=== PATIENT | male | born 2000 | race Caucasian/White ===

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

== ENCOUNTER 2022-02-16 05:35 | Outpatient (CLI) | payer MEDICAID ==
[~2022-02-16 05:35] MED LIST changes: -FEXO-46 PO; +NF-ALLE180 PO
== END 2022-02-17 11:17 | disposition home or self-care (01) ==
LOC: PREOP 05:35
PROVIDERS: ATTEND Dentist
DX: Z01.818 Encounter for other preprocedural examination (principal)

== ENCOUNTER 2022-02-23 08:25 | Day surgery (SDC) | payer MEDICAID ==
[2022-02-23] VITALS (9 sets, daily range): BP systolic 127–146; BP diastolic 65–85
[~2022-02-23] VITALS: Ht 193 cm; Wt 154.8 kg
[2022-02-23] MEDS ORDERED: PHENYLEPHRINE 0.25% NASAL SPR (NEO-SYNEPHRINE) 15 ML NS ONE (08:45)
[2022-02-23] MEDS ORDERED: LACTATED RINGERS 1,000 ML IV PRN (08:45)
--- NOTE | 2022-02-23 10:21 | Progress Note-Pre Operative ---
Pre-Operative Progress Note H&P Reviewed The H&P was reviewed, patient examined and no changes noted. Date Seen by Provider: February 23, 2022 Time Seen by Provider: 10: Date H&P Reviewed: February 23, 2022 Time H&P Reviewed: : Pre-Operative Diagnosis: Recurrent dental caries and uncooperative behavior RACHEL CHAVEZ DMD February 23, 2022 10:21
[2022-02-23] MEDS ORDERED: ROCURONIUM 50 MG/5 ML (ZEMURON) VIAL IV ONE (10:31)
[2022-02-23] MEDS ORDERED: fentaNYL INJ 100 MCG/2 ML AMP ONE (10:31)
[2022-02-23] MEDS ORDERED: proPOfol 200 MG/20 ML (DIPRIVAN) VIAL IV ONE (10:31)
[2022-02-23] MEDS ORDERED: ONDANSETRON 4 MG/2 ML (SDV) Z0FRAN ONE (10:31)
[2022-02-23] MEDS ORDERED: NEOSTIGMINE 3 MG/3 ML VIAL ONE (12:04)
[2022-02-23] MEDS ORDERED: GLYCOPYRROLATE 0.2 MG/ML (ROBINUL) 2 ML VIAL ONE (12:04)
[2022-02-23] MEDS ORDERED: SEVOFLURANE (ULTANE) 15 ML INHAL SOLN ONE ×2 (12:42→12:43)
[2022-02-23] MEDS ORDERED: morphine INJ 10 MG/ML 1ML (SYR OR VIAL) IVP ONE (13:00)
[2022-02-23] MEDS ORDERED: MEPERIDINE (DEMEROL) INJ 50 MG/ML IVP ONE (13:00)
--- NOTE | 2022-02-23 13:47 | Anesthesia-General Post-Op ---
General Patient Condition Mental Status/LOC: Same as Preop Cardiovascular: Satisfactory Nausea/Vomiting: Absent Respiratory: Satisfactory Pain: Controlled Complications: Absent Post Op Complications Complications None Follow Up Care/Instructions Patient Instructions None needed. Anesthesia/Patient Condition Patient Condition Patient is doing well, no complaints, stable vital signs, no apparent adverse anesthesia problems. No complications reported per nursing. ESTEFANIA OCAMPO CRNA February 23, 2022 13:47
--- NOTE | 2022-02-23 21:54 | OPERATIVE REPORT ---
DATE OF SERVICE: 02/23/2022 PREOPERATIVE DIAGNOSIS: Dental caries, recurrent caries and uncooperative behavior in the dental office. POSTOPERATIVE DIAGNOSIS: Confirmed and unchanged. SURGICAL PROCEDURE PERFORMED: Dental rehabilitation. DESCRIPTION OF PROCEDURE: After suitable premedication, nasoendotracheal intubation and general anesthesia, the following procedures were carried out. Local anesthesia consisting of approximately 1.7 mL of 2% lidocaine with epinephrine 1:100,000 were infiltrated. Decay noted clinically and radiographically on teeth #6, 8, 9, 10, 11, 22, 23, 24, 25 and 27. Decay removed from permanent cuspids, lateral and central incisors. Teeth were prepped for stainless steel crowns. The stainless steel crowns were cemented with RelyX cement. Teeth 8, 9 and 10 open face window made with composite for cosmetic appearance. Prophy and fluoride varnish completed. The patient was extubated and taken to recovery in satisfactory condition. Postoperative instructions were reviewed with guardian. No complications noted. Job ID: [id number] DocumentID: [id number] Dictated Date: 02/23/2022 14:24:15 Brake Operator Sheet Metal Date: 02/23/2022 21:53:52 Dictated By: RACHEL CHAVEZ DDS
== END 2022-02-23 14:40 | disposition home or self-care (01) ==
LOC: SDC 08:25
PROVIDERS: ATTEND Dentist
DX: K02.9 Dental caries, unspecified (principal); F90.2 Attention-deficit hyperactivity disorder, combined type; F84.0 Autistic disorder; F79 Unspecified intellectual disabilities; E66.01 Morbid (severe) obesity due to excess calories; I10 Essential (primary) hypertension; J45.20 Mild intermittent asthma, uncomplicated; Z68.54 Body mass index [BMI] pediatric, 95th percentile for age to less than 120% of the 95th percentile for age; Z79.899 Other long term (current) drug therapy
CPT/HCPCS: 87081

== ENCOUNTER 2022-03-31 17:05 | Emergency (ER) | payer MEDICAID ==
[~2022-03-31] VITALS: Ht 190.5 cm; Wt 154.8 kg
--- NOTE | 2022-03-31 17:37 | ED Lower Extremity ---
General Stated Complaint: L KNEE FRACTURE Source: patient Exam Limitations: no limitations (GRICELDA STORY) History of Present Illness Date Seen by Provider: Mar 31, 2022 Time Seen by Provider: 17:34 Initial Comments Patient is a 21-year-old male presents ED with mother for left knee pain. Patient states 2 weeks ago he twisted and turned and fractured his left knee. Was seen at Dr. Dowling's office and was placed in a knee brace. He states every time he wears a knee brace he falls down and does not give him support. He is not currently wearing the brace. Attempted to call Nitesh's office today secondary to the increased swelling of the left knee. He does have some pain with flexion but able to stand and bear weight. Denies of trauma to the left knee post injury 2 weeks ago. Has been taken extra strength Tylenol according to mother. Denies redness, bruising, fever, chills, chest pain, shortness of breath. Denies of any popping or locking of the left knee (GRICELDA STORY) Allergies and Home Medications Allergies Coded Allergies: amoxicillin (Unverified Allergy, Mild, 02/13/21) ibuprofen (Unverified Allergy, Mild, 02/13/21) Penicillins (Unverified Allergy, Unknown, 02/13/21) Sulfa (Sulfonamide Antibiotics) (Unverified Allergy, Unknown, 02/13/21) lisdexamfetamine (Unverified Allergy, Unknown, 09/24/21) methylphenidate (Unverified Allergy, Unknown, 02/13/21) Patient Home Medication List Home Medication List Reviewed: Yes (GRICELDA STORY) Albuterol Sulfate (Albuterol Sulfate) 2.5 Mg/0.5 Ml Vial.neb, 2.5 MG IH TID PRN for SHORTNESS OF BREATH, (Reported) Entered as Reported by: FIONA ERWIN on 09/13/17 1531 Albuterol Sulfate (Proair Hfa) 1 Puff Puff, 2 PUFF IH QID PRN for SHORTNESS OF BREATH, (Reported) Entered as Reported by: FIONA ERWIN on 05/31/18 1538 Amlodipine Besylate (Amlodipine Besylate) 5 Mg Tablet, 5 MG PO DAILY, (Reported) Entered as Reported by: JAVIER Renetta SALVADOR on 02/13/21 1342 Aripiprazole (Abilify) 20 Mg Tablet, 20 MG PO DAILY, (Reported) Entered as Reported by: OZZIE BRADY on 09/24/21 0924 Cetirizine HCl (Cetirizine HCl) 10 Mg Tablet, 10 MG PO DAILY, (Reported) Entered as Reported by: FIONA ERWIN on 10/24/19 1049 Cholecalciferol (Vitamin D3) (Vitamin D3) Unknown Strength Capsule, 2,000 PO DAILY, (Reported) Entered as Reported by: JAVIER FRANCO on 02/13/21 1342 Clonidine HCl (Clonidine HCl) 0.1 Mg Tablet, 0.1 MG PO BID, (Reported) Entered as Reported by: CARMEN ZHANG on 07/22/15 0843 Clonidine HCl (Clonidine HCl) 0.2 Mg Tablet, 0.2 MG PO HS, (Reported) Entered as Reported by: CARMEN ZHANG on 06/10/20 1527 Fexofenadine HCl (Fexofenadine HCl) 180 Mg Tablet, 180 MG PO DAILY, (Reported) Entered as Reported by: CARMEN ZHANG on 06/10/20 1527 Hydroxyzine Pamoate (Hydroxyzine Pamoate) 25 Mg Capsule, 50 MG PO TID, (Reported) Entered as Reported by: FIONA ERWIN on 10/24/19 1049 Loxapine Succinate (Loxapine) 50 Mg Capsule, 60 MG PO HS, (Reported) Entered as Reported by: CARMEN ZHANG on 06/10/20 1527 Melatonin/Pyridoxine HCl (B6) (Melatonin 10 mg Tablet) 1 Each Tab.mphase, 10 MG PO HS, (Reported) Entered as Reported by: FIONA ERWIN on 05/31/18 1538 [place]ka-3/Dha/Epa/Fish Oil (Fish Oil 1,000 mg Softgel) 1,000 Mg Capsule, 1,000 MG PO HS, (Reported) Entered as Reported by: FIONA ERWIN on 09/13/17 1531 Oxcarbazepine (Oxcarbazepine) 300 Mg/5 Ml Oral.susp, 300 MG PO DAILY, (Reported) Entered as Reported by: OZZIE BRADY on 09/24/21927 Oxcarbazepine (Oxcarbazepine) 300 Mg/5 Ml Oral.susp, 300 MG PO HS, (Reported) Entered as Reported by: OZZIE BRADY on 09/24/21927 Pantoprazole Sodium (Pantoprazole Sodium) 20 Mg Tablet.dr, 40 MG PO DAILY, (Reported) Entered as Reported by: FIONA ERWIN on 10/24/19 1049 Review of Systems Constitutional: No chills, No diaphoresis EENTM: No blurred vision, No double vision Respiratory: No cough Cardiovascular: No chest pain Gastrointestinal: No abdominal pain, No diarrhea, No nausea, No vomiting Genitourinary: No decreased output Musculoskeletal: No back pain; joint pain, muscle pain Skin: No change in color, No change in hair/nails (GRICELDA STORY) All Other Systems Reviewed Negative Unless Noted: Yes (GRICELDA STORY) Past Vsfpapi-Ypvquz-Fzrquh Hx Immunizations Up To Date Tetanus Booster (TDap): More than 5yrs PED Vaccines UTD: Yes First/Initial COVID19 Vaccinat: NO Second COVID19 Vaccination Desmond: NO Third COVID19 Vaccination Date: NO (GRICELDA STORY) Seasonal Allergies Seasonal Allergies: Yes (GRICELDA STORY) Past Medical History Surgeries: Yes (DENTAL PROCEDURES/cyst from knee, bilat ing hernia, BMT) Abdominal Respiratory: Yes Asthma Currently Using CPAP: No Cardiac: No Neurological: Yes (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, TIC DISORDER, 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) Developmental Disorder Reproductive Disorders: No Sexually Transmitted Disease: No HIV/AIDS: No Genitourinary: No Gastrointestinal: Yes Gastroesophageal Reflux, Chronic Constipation, Irritable Bowel Musculoskeletal: No Endocrine: No HEENT: No Loss of Vision: Denies Hearing Impairment: Hard of Hearing, Hearing Aide Right Cancer: No Psychosocial: Yes (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 0.0oz. [id number]; 41.55 BMI Method:Stated General Appearance: WD/WN, no apparent distress HEENT: PERRL/EOMI, normal ENT inspection, TMs normal, pharynx normal Neck: non-tender, full range of motion, supple Cardiovascular: regular rate, rhythm, no edema, no gallop, no JVD Respiratory: chest non-tender, lungs clear, normal breath sounds, no respiratory distress Gastrointestinal: normal bowel sounds, non tender, soft, no organomegaly Back: normal inspection, no CVA tenderness Hips: bilateral hip non-tender, bilateral hip normal inspection, bilateral hip normal range of motion, bilateral hip no evidence of injury Knees: left knee normal range of motion (Full extension and flexion to 90 degrees of the left knee), left knee pain (Tenderness to left lateral outer knee), left knee soft tissue tenderness, left knee swelling Ankles: bilateral ankle non-tender, bilateral ankle normal inspection, bilateral ankle normal range of motion Feet: bilateral foot non-tender, bilateral foot normal inspection, bilateral foot normal range of motion Neurologic/Psychiatric: speedometer mechanic II-XII nml as tested, no motor/sensory deficits, alert, normal mood/affect, oriented x 3 Skin: normal color, warm/dry (GRICELDA STORY) Progress/Results/Core Measures Results/Orders Vital Signs/I&O 03/31/22 18:15 Temp 36.8 Pulse 84 Resp 18 B/P (MAP) 167/83 (111) Pulse Ox 100 O2 Delivery Room Air (TRISHA ALBRECHT MD) Departure Communication (PCP) X-ray negative for acute fracture. Patient was placed in a knee immobilizer. Limited weightbearing was recommended by orthopedic. Mother's requesting a immobilizer at this time. Recommend anti-inflammatories. Outpatient orthopedic follow-up. Return precautions were discussed with mother. Patient scheduled follow-up in [address] Dowling. (GRICELDA STORY) Impression Primary Impression: Knee pain Disposition: 01 HOME, SELF-CARE Condition: Stable Departure-Patient Inst. Decision time for Depature: 17:57 (GRICELDA STORY) Referrals: [facility] [place] (PCP) Primary Care Physician MOHAN LOZADA (Family) Primary Care Physician FAM DOWLING MD Patient Instructions: Knee Pain ATTENDING PHYSICIAN NOTE: I was physically present as attending physician in the emergency department during the care of this patient, but I was not directly involved in the decision making or delivery of care for this patient. (TRISHA ALBRECHT MD) GRICELDA STORY Mar 31, 2022 17:37 TRISHA ALBRECHT MD Apr 01, 2022 21:34
--- NOTE | 2022-03-31 17:51 | Diagnostic Imaging Report ---
EXAM: KNEE, LEFT, 3 VIEWS INDICATION: Left knee pain. COMPARISON: None. FINDINGS: No acute-appearing fracture or malalignment. Ossific body inferior to the patella appears to be chronic. No left knee joint effusion. No radiopaque foreign bodies. IMPRESSION: 1. No acute radiographic findings in the left knee. 2. Ossific body along the inferior pole of the patella appears to be chronic. Recommend correlation with point tenderness. Dictated by: Dictated on workstation # [id number]
[2022-03-31 18:15] VITALS: BP 167/83
== END 2022-03-31 18:15 | disposition home or self-care (01) ==
LOC: EDUNIT# 17:05 → ER 17:09
DX: M25.462 Effusion, left knee (principal); X50.1XXA Overexertion from prolonged static or awkward postures, initial encounter
CPT/HCPCS: 73562